=== PATIENT | female | born 1965 | race Caucasian/White ===

== ENCOUNTER 2021-09-18 15:01 | Emergency (ER) | payer OTHER ==
[2021-09-18 16:07] LABS: HEMOGLOBIN 14.1 gm/dl (12.3-15.3); RED BLOOD COUNT 4.23 M/UL (4.00-5.10); WHITE BLOOD COUNT 11.9 K/UL (4.5-11.0)
[2021-09-18 16:27] LABS: BUN/CREATININE RATIO 21 (0-10)
[2021-09-18] MEDS ORDERED: CLEOCIN HCL300 MG PO (19:47)
== END 2021-09-18 19:55 | disposition home or self-care (01) ==
LOC: ER1 15:01
PROVIDERS: Nurse Practitioner
DX: K04.7 Periapical abscess without sinus (principal); I10 Essential (primary) hypertension
CPT/HCPCS: 70491; 80053; 85025; 96365; 99283; J0690; J7030; Q9967

== ENCOUNTER → 2022-05-12 | Outpatient (CLI) | payer OTHER ==
[~2022-05-12] MED LIST: AMLODIPINE BESYL5 MG PO; CLARITIN10 MG PO; CLEOCIN HCL300 MG PO
[2022-05-12 11:05] LABS: HEMOGLOBIN 13.6 gm/dl (12.3-15.3); RED BLOOD COUNT 4.17 M/UL (4.00-5.10); WHITE BLOOD COUNT 7.7 K/UL (4.5-11.0)
[2022-05-12 11:25] LABS: BUN/CREATININE RATIO 22 (0-10)
== END ==
LOC: OPSV2 10:00
PROVIDERS: Obstetrics & Gynecology
DX: Z01.812 Encounter for preprocedural laboratory examination (principal); N81.4 Uterovaginal prolapse, unspecified
CPT/HCPCS: 36415; 80053; 81001; 85025